=== PATIENT | male | born 1975 | race Caucasian/White ===

== ENCOUNTER 2017-01-10 12:19 | Emergency (ER) | payer OTHER ==
[~2017-01-10] VITALS: Ht 182.8 cm; Wt 77.1 kg
[2017-01-10] MEDS ORDERED: CYCLOBENZAPRINE10 MG PO (14:38)
[2017-01-10] MEDS ORDERED: Motrin,Rufen800 MG PO (14:38)
== END 2017-01-10 14:42 | disposition home or self-care (01) ==
LOC: ED 12:19
DX: S40.022A Contusion of left upper arm, initial encounter (principal); S50.312A Abrasion of left elbow, initial encounter; S09.90XA Unspecified injury of head, initial encounter; F17.200 Nicotine dependence, unspecified, uncomplicated; V98.8XXA Other specified transport accidents, initial encounter; Y93.89 Activity, other specified; Y92.413 State road as the place of occurrence of the external cause; Y99.9 Unspecified external cause status